=== PATIENT | male | born 1950 | race Caucasian/White ===

== ENCOUNTER 2024-03-11 10:07 | Emergency (ER) | payer OTHER, SELFPAY ==
[2024-03-11] VITALS (31 sets, daily range): BP systolic 86–126; BP diastolic 60–93; BMI 32.0
--- NOTE | 2024-03-11 10:30 | ED.GENMED ---
History of Present Illness
<Kristin Padron PA-C - Last Filed: 03/11/24 17:21>
General
Chief Complaint: Heart Rate Problem
Source: patient
Exam Limitations: none
Time Seen by Provider: 03/11/24 10:25
Nursing documentation reviewed up to this point in time: agreed with
Travel History
Have you had any contact with someone who has COVID-19?: No
Do you have any symptoms of coronavirus? Fever > 100 degrees, chills, cough, shortness of breath, sore throat, loss of taste or smell, muscle aches, or headache?: No
History of Present Illness
History of Present Illness:
This is a 73-year-old male with past medical history paroxysmal a flutter on Eliquis, hypertension presenting the emergency department today with concerns of a high heart rate. Patient states that last night, he was doing a routine check of his
blood pressure and heart rate when he noticed that his heart rate was elevated. He called his cardiology office today who reported that he should go to the emergency department for further evaluation. Patient currently denies any dizziness, chest
pain, shortness of breath, palpitations. Patient states that when this happened in the past, he also had no symptoms at that time. Patient [place] any syncopal episodes. 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 Patient takes
carvedilol for rate control for his a flutter and he takes hydrochlorothiazide for blood pressure control.
Past History
<Kristin Padron PA-C - Last Filed: 03/11/24 17:21>
Past History
ED Past Medical History: HTN and Other (Diverticulosis)
Social History
Personal:
Living: with family
Review of Systems
<Kristin Padron PA-C - Last Filed: 03/11/24 17:21>
Review of Systems
All Other Systems: ROS reviewed and negative except as documented in HPI and ROS
Phy Exam
<Kristin Padron PA-C - Last Filed: 03/11/24 17:21>
Physical Exam
Physical Exam:
General: Patient is well appearing and in no acute distress; non-toxic
Skin: Warm and dry, no rashes or lesions
Head: Normocephalic, atraumatic
Eyes: Sclera non-icteric. EOMs intact.
Cardiac: Tachycardia but regular rhythm.
Peripheral Vascular: No lower extremity swelling or edema, 2+ dorsalis pedis pulses bilaterally
Pulm: Normal respiratory effort, no wheezes, rales, rhonchi
Abdomen: No abdominal tenderness
Neuro: CN II-XII intact, no focal neurologic deficits.
Psychiatric: Appropriate mood and affect.
Course
<Kristin Padron PA-C - Last Filed: 03/11/24 17:21>
Orders/Labs/Results
Orders:
Orders
03/11/24 10:09
EKG [Electrocardiogram (*1)] Urgent
Reason for Study: Tachycardia
EKG- Treatment ONCE
03/11/24 10:30
Cardiac Monitoring- Treatment ONCE
IV Insert/Care/Rem.- Treatment PRN
03/11/24 10:32
Complete Blood Count/With Diff Urgent
Comprehensive Metabolic Panel Urgent
Troponin I Urgent
03/11/24 10:53
Diltiazem 125 mg/125 ml Nss [Cardizem] 125 mg in 125 ml IV NOW
Initial dose in mg/hr, then titrate:: 5
Titrate to keep:: Heart rate 80-100 bpm
Titrate by mg/hr:: 5 mg/hr
Frequency of titrations (minutes):: 15
Maximum dose in mg/hr:: 15
03/11/24 11:41
0.9% Sodium Chloride 1000 ml [Nss] 1,000 ml IV BOLUS
03/11/24 12:23
Diltiazem HCl [Cardizem] 20 mg IV NOW STA
03/11/24 12:42
0.9% Sodium Chloride 1000 ml [Nss] 1,000 ml IV BOLUS
03/11/24 13:40
Propofol [Diprivan] 20 ml .ROUTE .STK-MED
03/11/24 14:07
EKG [Electrocardiogram (*1)] Urgent
Reason for Study: Atrial Flutter
03/11/24 14:08
EKG- Treatment ONCE
Abnormal Lab Results
03/11/24
10:32
Absolute Monos (auto) 0.8 H 10^3/uL
(0.1-0.6)
Monocytes % 10.0 H %
(1.7-9.3)
BUN 24 H mg/dl
(9-20)
Creatinine 1.6 H mg/dL
(0.7-1.3)
Glucose 115 H mg/dl
(70-99)
Troponin I 0.097 H* ng/ml
03/11/24 10:32
03/11/24 10:32
Vital Signs
Initial and Last Documented VS:
Initial Vital Signs
Temp Pulse Resp BP Pulse Ox
97.8 F 145 18 126/93 99
03/11/24 10:09 03/11/24 10:09 03/11/24 10:09 03/11/24 10:09 03/11/24 10:09
Last Documented Vital Signs
Temp Pulse Resp BP Pulse Ox
98.4 F 56 14 107/71 94
03/11/24 14:40 03/11/24 14:46 03/11/24 14:46 03/11/24 14:46 03/11/24 14:46
<Tai Graves DO - Last Filed: 03/11/24 14:10>
Orders/Labs/Results
Orders:
Orders
03/11/24 10:09
EKG [Electrocardiogram (*1)] Urgent
Reason for Study: Tachycardia
EKG- Treatment ONCE
03/11/24 10:30
Cardiac Monitoring- Treatment ONCE
IV Insert/Care/Rem.- Treatment PRN
03/11/24 10:32
Complete Blood Count/With Diff Urgent
Comprehensive Metabolic Panel Urgent
Troponin I Urgent
03/11/24 10:53
Diltiazem 125 mg/125 ml Nss [Cardizem] 125 mg in 125 ml IV NOW
Initial dose in mg/hr, then titrate:: 5
Titrate to keep:: Heart rate 80-100 bpm
Titrate by mg/hr:: 5 mg/hr
Frequency of titrations (minutes):: 15
Maximum dose in mg/hr:: 15
03/11/24 11:41
0.9% Sodium Chloride 1000 ml [Nss] 1,000 ml IV BOLUS
03/11/24 12:23
Diltiazem HCl [Cardizem] 20 mg IV NOW STA
03/11/24 12:42
0.9% Sodium Chloride 1000 ml [Nss] 1,000 ml IV BOLUS
03/11/24 13:40
Propofol [Diprivan] 20 ml .ROUTE .STK-MED
03/11/24 14:07
EKG [Electrocardiogram (*1)] Urgent
Reason for Study: Atrial Flutter
03/11/24 14:08
EKG- Treatment ONCE
Abnormal Lab Results
03/11/24
10:32
Absolute Monos (auto) 0.8 H 10^3/uL
(0.1-0.6)
Monocytes % 10.0 H %
(1.7-9.3)
BUN 24 H mg/dl
(9-20)
Creatinine 1.6 H mg/dL
(0.7-1.3)
Glucose 115 H mg/dl
(70-99)
Troponin I 0.097 H* ng/ml
03/11/24 10:32
03/11/24 10:32
Vital Signs
Initial and Last Documented VS:
Initial Vital Signs
Temp Pulse Resp BP Pulse Ox
97.8 F 145 18 126/93 99
03/11/24 10:09 03/11/24 10:09 03/11/24 10:09 03/11/24 10:09 03/11/24 10:09
Last Documented Vital Signs
Temp Pulse Resp BP Pulse Ox
98.4 F 56 14 107/71 94
03/11/24 14:40 03/11/24 14:46 03/11/24 14:46 03/11/24 14:46 03/11/24 14:46
Procedures
<Tai Graves, DO - Last Filed: 03/11/24 14:10>
Cardioversion
Indication:: Other (Atrial flutter)
Performed by:: Dr. Graves
Synchronized?: Yes
Energy Used: 200 joules
Number of attempts: 1
Successful?: Yes
ASA Risk Score: Class II
Any reaction or bad outcome to prior sedation/anesthesia?: No history of a reaction
Sedation level to be attained: deep
Chart and allergies reviewed: Yes
Patient reassessed prior to sedation: Yes
Time out completed at (validating right patient & procedure): 13:48
History of difficult intubation: No
Airway free of obstruction: Yes
Patient has a gag reflex: Yes
Patient is able to open mouth: Yes
Patient has no dentures: Yes
Patient has no loose teeth: Yes
Medication administered by Provider during Moderate Sedation: IV Propofol (mg) (80)
Total dose administered: 80
Time drug administered: 13:49
Start Time: 13:49
Stop Time: 14:01
<Kristin Padron PA-C - Last Filed: 03/11/24 17:21>
MDM/Problems Addressed
Differential Diagnosis Includes:
A flutter, atrial fibrillation, supraventricular tachycardia, sinus tachycardia, sinus rhythm
MDM/Problems Addressed:
tachycardia
Chronic conditions affecting care:
HTN, paroxysmal aflutter
Acute Exacerbation and/or Progression of Chronic Illness:
HTN, paroxysmal aflutter
<Kristin Padron PA-C - Last Filed: 03/11/24 17:21>
*Pulse Oximetry
Patient hypoxic: no
*Critical Care Note
Total Time (30-74mins, 75-104mins- exclusive of procedures): Not Applicable
<Kristin Padron PA-C - Last Filed: 03/11/24 17:21>
Patient Management
Escalation/DeEscalation of care consider admission/obs:
This is a 73-year-old male with past medical history paroxysmal a flutter on Eliquis, hypertension presenting the emergency department today with concerns of a high heart rate. Patient is no symptoms and he noticed that his heart rate was high when
he was doing a routine blood pressure check. We attempted to bring him patient's rate with diltiazem drip, increasing the drip to 5-10, and 2 additional boluses along with IV fluids. This did not alter her patient's heart rate whatsoever so
cardioversion was indicated. Patient successfully converted with 200 J. Patient now demonstrates sinus bradycardia on his EKG. We reached out to Dr. Mullins, physician from Dr. Deluna's practice, made physician aware of his case, Dr. Mullins
recommends no changes in his medication at this time. Patient made aware of recommendations, patient will follow-up with knife grinder.
<Tai Graves DO - Last Filed: 03/11/24 14:10>
Patient Management
Discussion with other providers: Promotions Executive Producer (Dr. Mullins)
<Kristin Padron PA-C - Last Filed: 03/11/24 17:21>
Update Note
Update Note:
12:00 pm--After multiple revaluations, rate did not decrease with 5mg/hour infusion and so it was increased to 10 mg and IV fluids were started. On reassessment, his heart rate remains in the 140s, will give bolus.
12:51 pm-- most recent blood pressure 86/64, will give another liter of fluid
1:15 pm-- Heart rate remains in 140s, discussed potential of cardioversion with patient
ED Attending Note
<Kristin Padron PA-C - Last Filed: 03/11/24 17:21>
-
Portions of this chart may have been created with voice recognition software.� Occasional wrong word or��sound alike� substitutions may have occurred due to the inherent limitations of voice recognition software.
<Tai Graves DO - Last Filed: 03/11/24 14:10>
ED Attending Note
Patient seen and examined by attending physician: Yes
I performed the substantive portion of visit, reviewed & personally made and approve the management plan that is documented in note by myself or BRUNO.: Yes
ED Attending Note:
73-year-old male with history of atrial fibrillation/atrial flutter who presents with fast heart rate. He states he only knows because he checked his heart rate it was noted to be elevated. He otherwise feels okay. He states he checked his heart
rate yesterday and it was normal. He is on Eliquis and states he takes it 'religiously'. Patient states he has had 2 other episodes over many years with rapid heart rate. The patient denies chest pain. No shortness of breath. Exam: Heart
regular tachycardia extremity edema, no respiratory distress. Assessment and plan: Patient was successfully cardioverted. Continue to monitor. Case discussed with Dr. Mullins who recommends to leave medications as is as outpatient cardiology will
follow
Discharge Plan
Departure
Patient Disposition: Home (Routine Discharge)
Date of Disposition: 03/11/24
Time of Disposition: 14:13
Patient with high blood pressure during this ER visit?: No
Condition: Good
Discharge Problem:
Paroxysmal atrial flutter
Instructions: Atrial Flutter (DC), Procedural Sedation, Adult ED
Prescriptions:
No Action
carvedilol 12.5 mg Tablet
25 mg PO BID
polyethylene glycol 3350 [Miralax] 17 gram Powder In Packet
17 g PO DAILY PRN (Reason: constipation)
ascorbic acid (vitamin C) [Vitamin C] 250 mg Tablet,Chewable
500 mg PO DAILY PRN (Reason: supplement)
hydrochlorothiazide 12.5 mg Capsule
12.5 mg PO DAILY
ezetimibe-simvastatin 10-20 mg Tablet
1 tab PO HS
Fruit and Vegetable Daily 5-6-150 mg Capsule
4 cap PO DAILYPRN PRN (Reason: supplement)
Patient Comments:
03/11/2024, Balance of Nature; 2 fruits and 2 veggies.
Lumigan 0.01 % Drops
1 drp BOTH EYES HS
Eliquis 5 mg Tablet
5 mg PO BID
Referrals:
Pushpa Bro CRNP [Family Provider] -
Activity Restrictions/Additional Instructions:
Please continue with your medications as prescribed.
Please follow up with your knife grinder.
RETURN TO THE EMERGENCY DEPARTMENT SHOULD YOU EXPERIENCE CHEST PAIN, SHORTNESS OF BREATH, SYNCOPAL EPISODES, BACK PAIN, PALPITATIONS, DIZZINESS, OR ANY OTHER SIGNS OR SYMPTOMS CONCERNING TO YOU.
Interventions
Interventions:
*Risk Screen - Suicide Last Done: 03/11/24 10:09
*General Assessment Last Done: 03/11/24 14:48
*Neglect/Abuse Screening Last Done: 03/11/24 14:48
ED- Fall Risk Assessment Last Done: 03/11/24 14:48
*ED COVID-19 Vaccine History Last Done: 03/11/24 10:09
*Nursing Disposition Last Done: 03/11/24 14:51
ED- Cardiac Assessment Last Done: 03/11/24 12:02
ED- Pulmonary Assessment Last Done: 03/11/24 12:02
Discharge Date and Time
Discharge Date/Time: 03/11/24 14:51
Print Language: BULGARIAN
[2024-03-11 10:44] LABS: % Basophils 0.8 % (0-2); % Eosinophils 3.1 % (0-6); % Immature Granulocytes 0.3 % (0-0.5); % Lymphocytes 24.8 % (20.5-51.1); Absolute Basophils 0.1 10^3/uL (0-0.2); Absolute Eosinophils 0.2 10^3/uL (0-0.7); Absolute Lymphocytes 1.9 10^3/uL (1.2-3.4); Absolute Monocytes 0.8 10^3/uL (0.1-0.6); Absolute Neutrophils 4.6 10^3/uL (1.4-6.5); Hematocrit 46.4 % (39.0-52.0); Hemoglobin 16.4 g/dL (13.0-18.0); Mean Corp Hgb Conc. 35.3 g/dL (33.0-37.0); Mean Corpuscular Hgb 29.3 pg (27.0-31.0); Mean Platelet Volume 9.2 fL (7.4-10.4); Nucleated Red Blood Cells % 0 % (-); Platelet Count 217 10^3/uL (130-400); Red Blood Cell Count 5.59 10^6/uL (4.70-6.10); Red Cell Dist. Width 13.7 % (11.5-14.5); White Blood Cell Count 7.5 10^3/uL (4.8-10.8)
[2024-03-11 11:02] LABS: ALT (SGPT) 34 U/L (0-50); AST (SGOT) 26 U/L (17-59); Albumin 4.2 g/dl (3.5-5.0); Alkaline Phosphatase 70 U/L (38-126); Blood Urea Nitrogen 24 mg/dl (9-20); Calcium 9.6 mg/dl (8.4-10.2); Carbon Dioxide 26 mmol/L (22-30); Chloride 106 mmol/L (98-107); Estimated Creatinine Clearance 54 ml/min; Glucose 115 mg/dl (70-99); Potassium 4.5 mmol/L (3.5-5.1); Sodium 138 mmol/L (135-145); Total Bilirubin 1.1 mg/dl (0.2-1.3); Total Protein 7.2 g/dl (6.3-8.2); eGFR 45.78
[2024-03-11] MEDS: CARDIZEM 125 IV (11:04)
[2024-03-11 11:21] LABS: Troponin I 0.097 ng/ml
[2024-03-11] MEDS: NSS 1000 IV ×2 (11:48→12:55)
[2024-03-11] MEDS: CARDIZEM 20 MG IV (12:27)
== END 2024-03-11 14:51 | disposition home or self-care (01) ==
LOC: EMR 10:07
PROVIDERS: EMERGENCY PHYSICIAN Emergency Medicine; FAMILY PHYSICIAN Nurse Practitioner Gerontology
DX: I48.92 Unspecified atrial flutter (principal); R00.2 Palpitations; I10 Essential (primary) hypertension; Z79.01 Long term (current) use of anticoagulants
CPT/HCPCS: 99284; 92960; 96374; 96375; 96361; 80053; 84484; 85025; 93005

== ENCOUNTER → 2024-04-06 13:49 | Outpatient (REF) | payer OTHER, SELFPAY | LOC: RAD 13:49 | PROVIDERS: ATTENDING PHYSICIAN Internal Medicine Cardiovascular Disease; FAMILY PHYSICIAN Nurse Practitioner Gerontology | DX: R09.02 Hypoxemia (principal) | CPT/HCPCS: 71046 ==

== ENCOUNTER → 2024-04-09 09:20 | Outpatient (REF) | payer OTHER, SELFPAY | LOC: RCS 09:20 | PROVIDERS: ATTENDING PHYSICIAN Internal Medicine Cardiovascular Disease | DX: R09.02 Hypoxemia (principal); R42 Dizziness and giddiness | CPT/HCPCS: 93225; 93226 ==

== ENCOUNTER 2024-06-19 21:55 | Emergency (ER) | payer OTHER, SELFPAY ==
[2024-06-19 21:57] VITALS: BP 128/87
[2024-06-19 22:08] VITALS: BP 102/78
[2024-06-19 22:11] VITALS: BMI 32.3
--- NOTE | 2024-06-19 22:14 | EDRN ---
Pt says his was laying on his chest tonight and thought his HR was fast so they did a Kardia mobile and HR was fast, afib. Pt has no symptoms and says his told him he had to come to the ED. Pt took his nighttime dose of eliquis. Pt
worked out this afternoon and says he felt like he usually does but his told him he did not look well afterwards. No headache. Pt says last time he was here for same on March 11, he only knew he had an issue because the HR on his BP monitor at
home was high. Pt started on lisinopril in April.
--- NOTE | 2024-06-19 22:45 | ED.GENMED ---
History of Present Illness
<Buffy Otto MD, Resident - Last Filed: 06/20/24 01:42>
General
Chief Complaint: Heart Rate Problem
Source: patient and spouse
Time Seen by Provider: 06/19/24 22:04
History of Present Illness
History of Present Illness:
73-year-old male, Mr. Rikki Fontenot with past medical history significant for arrhythmia on Eliquis, hypertension, hyperlipidemia presented to the ER reporting heart rate problem. Patient was lying down on bed at home watching TV and his was
lying on his chest and heard his heart rate was abnormal. Patient reports no chest pain, headache, lightheadedness, SOB, fevers/chills, calf pain. Patient is a non-smoker, nonalcoholic, and he also cut down his caffeine intake, currently drinks
only decaffeinated drinks.
Past History
<Buffy Otto MD, Resident - Last Filed: 06/20/24 01:42>
Past History
ED Past Medical History: HTN, Hypercholesterolemia and Other (Diverticulosis)
Social History
Tobacco: Non-smoker
Alcohol: None
Drug: None
Personal:
Living: with family
Phy Exam
<Buffy Otto MD, Resident - Last Filed: 06/20/24 01:42>
Physical Exam
Physical Exam:
GEN: Well appearing, NAD, WDWN
Eyes: PERRLA, EOMs intact, no scleral icterus
HENT: NCAT, oral mucosa moist, no JVD, no cervical adenopathy.
Lungs: CTAB, no wheezes, rales, rhonchi, normal chest wall excursion
Cardiac: Irregular rhythm, tachycardia, S1-S2+, radial pulses 2+ bilat, pedal edema 2+
Abdomen: S, NT, ND, NABS, no masses or hepatosplenomegaly
Neuro: AO x 3, no focal deficits to BUE/BLE
Skin: No rashes, petechiae. Normal color, no pallor or jaundice.
Psych: Calm, cooperative, proper hygiene
Course
<Veneela Bartolome Otto MD, Resident - Last Filed: 06/20/24 01:42>
Orders/Labs/Results
Orders:
Orders
06/19/24 21:57
ECG [Electrocardiogram (*1)] Urgent
Reason for Study: Atrial Fibrillation
06/19/24 21:58
EKG- Treatment ONCE
06/19/24 22:43
0.9% Sodium Chloride 1000 ml [Nss] 1,000 ml IV BOLUS
Diltiazem HCl [Cardizem] 20 mg IV NOW STA
06/19/24 23:03
Complete Blood Count/With Diff Urgent
TSH Reflex To Free T4 Urgent
06/19/24 23:06
EKG [Electrocardiogram (*1)] Urgent
Reason for Study: Other
Other Reason for Exam: converted to NSR
EKG- Treatment ONCE
06/19/24 23:42
Comprehensive Metabolic Panel Urgent
Magnesium Urgent
06/20/24 00:19
Potassium Chloride 10% Elixir [KCl Elixir] 40 meq PO NOW STA
Abnormal Lab Results
06/19/24 06/19/24
23:03 23:42
RBC 4.52 L 10^6/uL
(4.70-6.10)
Hct 36.7 L %
(39.0-52.0)
MCHC 37.1 H g/dL
(33.0-37.0)
Absolute Monos (auto) 0.8 H 10^3/uL
(0.1-0.6)
Monocytes % 10.4 H %
(1.7-9.3)
BUN 27 H mg/dl
(9-20)
Creatinine 1.5 H mg/dL
(0.7-1.3)
Glucose 101 H mg/dl
(70-99)
Total Protein 5.7 L g/dl
(6.3-8.2)
Albumin 3.3 L g/dl
(3.5-5.0)
06/19/24 23:03
06/19/24 23:42
Vital Signs
Initial and Last Documented VS:
Initial Vital Signs
Temp Pulse Resp BP Pulse Ox
98.1 F 142 18 128/87 97
06/19/24 21:57 06/19/24 21:57 06/19/24 21:57 06/19/24 21:57 06/19/24 21:57
Last Documented Vital Signs
Temp Pulse Resp BP Pulse Ox
98.1 F 81 14 111/74 95
06/19/24 21:57 06/20/24 00:00 06/19/24 23:07 06/20/24 00:00 06/20/24 00:00
<Tai Graves DO - Last Filed: 06/19/24 23:46>
Orders/Labs/Results
Orders:
Orders
06/19/24 21:57
ECG [Electrocardiogram (*1)] Urgent
Reason for Study: Atrial Fibrillation
06/19/24 21:58
EKG- Treatment ONCE
06/19/24 22:43
0.9% Sodium Chloride 1000 ml [Nss] 1,000 ml IV BOLUS
Diltiazem HCl [Cardizem] 20 mg IV NOW STA
06/19/24 23:03
Complete Blood Count/With Diff Urgent
TSH Reflex To Free T4 Urgent
06/19/24 23:06
EKG [Electrocardiogram (*1)] Urgent
Reason for Study: Other
Other Reason for Exam: converted to NSR
EKG- Treatment ONCE
06/19/24 23:42
Comprehensive Metabolic Panel Urgent
Magnesium Urgent
06/20/24 00:19
Potassium Chloride 10% Elixir [KCl Elixir] 40 meq PO NOW STA
Abnormal Lab Results
06/19/24 06/19/24
23:03 23:42
RBC 4.52 L 10^6/uL
(4.70-6.10)
Hct 36.7 L %
(39.0-52.0)
MCHC 37.1 H g/dL
(33.0-37.0)
Absolute Monos (auto) 0.8 H 10^3/uL
(0.1-0.6)
Monocytes % 10.4 H %
(1.7-9.3)
BUN 27 H mg/dl
(9-20)
Creatinine 1.5 H mg/dL
(0.7-1.3)
Glucose 101 H mg/dl
(70-99)
Total Protein 5.7 L g/dl
(6.3-8.2)
Albumin 3.3 L g/dl
(3.5-5.0)
06/19/24 23:03
06/19/24 23:42
Vital Signs
Initial and Last Documented VS:
Initial Vital Signs
Temp Pulse Resp BP Pulse Ox
98.1 F 142 18 128/87 97
06/19/24 21:57 06/19/24 21:57 06/19/24 21:57 06/19/24 21:57 06/19/24 21:57
Last Documented Vital Signs
Temp Pulse Resp BP Pulse Ox
98.1 F 81 14 111/74 95
06/19/24 21:57 06/20/24 00:00 06/19/24 23:07 06/20/24 00:00 06/20/24 00:00
<Buffy Otto MD, Resident - Last Filed: 06/20/24 01:42>
MDM/Problems Addressed
Differential Diagnosis Includes:
Atrial fibrillation versus atrial flutter versus atrial tachycardia versus PSVT
MDM/Problems Addressed:
Patient is asymptomatic at presentation.
Blood pressure is stable at 128/87. Heart rate at 142.
EKG�A-fib with rapid ventricular response, ventricular rate of 144.
CBC unremarkable, CMP-BUN 27, creatinine 1.5, TSH, magnesium-WNL.
Potassium�3.5, repleted with 40 mg.
Patient is started on IV fluids
Patient is on Eliquis, did not miss any doses.
Ordered diltiazem 20 mg bolus, but patient has spontaneously converted back to sinus rhythm without any medications.
Patient remained stable with heart rate in 80s. Blood pressure 111/74.
Patient is asymptomatic.
Clinically stable to be discharged home.
<Tai Graves DO - Last Filed: 06/19/24 23:46>
*Pulse Oximetry
Patient hypoxic: no
*EKG
Interpreted by ED Provider?: Yes
Interpretation: abnormal
Rate: tachycardiac
Rhythm: a-fib
Ischemia: non-specific ST changes
*Vascular Technologist Interpretation
Rate: tachycardiac
Interpretation: abnormal
Rhythm: a-fib
*Critical Care Note
Total Time (30-74mins, 75-104mins- exclusive of procedures): 30 minutes
Data Reviewed
Review of Other/Old Records Reveals: Other (prior ekg reviewed)
Source: patient and spouse
Prescriptions/Medications Considered But Not Given:
Consider diltiazem the patient converted on his own after IV stick
ED Attending Note
<Buffy Otto MD, Resident - Last Filed: 06/20/24 01:42>
-
Portions of this chart may have been created with voice recognition software.� Occasional wrong word or��sound alike� substitutions may have occurred due to the inherent limitations of voice recognition software.
<Tai Graves, DO - Last Filed: 06/19/24 23:46>
ED Attending Note
Patient seen and examined by attending physician: Yes
I performed a history and physical exam of patient and discussed management with resident, I reviewed resident's note and agree with documented findings and plan of care.: Yes
ED Attending Note:
73-year-old male who presents with rapid A-fib. I did take care of him in the past with similar complaints and he had been doing well since March. Today he only noticed he was in A-fib because his laid her head on his chest. Patient offers no
symptoms. Exam: Awake and alert, heart irregularly irregular and tachycardic. No respiratory distress. Trace bilateral lower extremity edema. Assessment plan: Patient converted back to sinus rhythm on his own after IV stick. Await electrolytes
and anticipate discharge. Check potassium in light of hydrochlorothiazide
Discharge Plan
Departure
Patient Disposition: Home (Routine Discharge)
Date of Disposition: 06/20/24
Time of Disposition: 00:16
Patient with high blood pressure during this ER visit?: No
Condition: Good
Discharge Problem:
Atrial fibrillation
Instructions: Atrial Fibrillation (DC)
Prescriptions:
No Action
polyethylene glycol 3350 [Miralax] 17 gram Powder In Packet
17 g PO DAILY PRN (Reason: constipation)
ascorbic acid (vitamin C) [Vitamin C] 250 mg Tablet,Chewable
500 mg PO DAILY PRN (Reason: supplement)
hydrochlorothiazide 12.5 mg Capsule
12.5 mg PO DAILY
ezetimibe-simvastatin 10-20 mg Tablet
1 tab PO HS
Lumigan 0.01 % Drops
1 drp BOTH EYES HS
Eliquis 5 mg Tablet
5 mg PO BID
carvedilol 25 mg Tablet
25 mg PO BID
lisinopril 5 mg Tablet
5 mg PO DAILY
Referrals:
Pushpa Bro CRNP [Family Provider] -
Activity Restrictions/Additional Instructions:
Please follow-up with your primary care provider and field identification specialist within a week.
Interventions
Interventions:
*Risk Screen - Suicide Last Done: 06/19/24 21:57
*General Assessment Last Done: 06/19/24 21:57
*Neglect/Abuse Screening Last Done: 06/19/24 21:57
ED- Fall Risk Assessment Last Done: 06/19/24 23:14
*ED COVID-19 Vaccine History Last Done: 06/19/24 22:12
*Nursing Disposition Last Done: 06/20/24 00:42
ED- Cardiac Assessment Last Done: 06/19/24 22:11
ED- Pulmonary Assessment Last Done: 06/19/24 22:11
Discharge Date and Time
Discharge Date/Time: 06/20/24 00:42
Print Language: [place] ISLAND[place]
[2024-06-19 23:00] VITALS: BP 121/84
[2024-06-19] MEDS: NSS 1000 IV (23:03)
[2024-06-19 23:07] VITALS: BP 119/83
[2024-06-19 23:11] LABS: % Basophils 0.6 % (0-2); % Immature Granulocytes 0.4 % (0-0.5); % Lymphocytes 24.8 % (20.5-51.1); % Monocytes 10.4 % (1.7-9.3); % Neutrophils 61.8 % (42.2-75.2); Absolute Basophils 0.1 10^3/uL (0-0.2); Absolute Eosinophils 0.2 10^3/uL (0-0.7); Absolute Monocytes 0.8 10^3/uL (0.1-0.6); Absolute Neutrophils 4.9 10^3/uL (1.4-6.5); Hematocrit 36.7 % (39.0-52.0); Hemoglobin 13.6 g/dL (13.0-18.0); Mean Corp Hgb Conc. 37.1 g/dL (33.0-37.0); Mean Corpuscular Hgb 30.1 pg (27.0-31.0); Mean Corpuscular Volume 81.2 fL (80.0-94.0); Mean Platelet Volume 9.5 fL (7.4-10.4); Nucleated Red Blood Cells % 0 % (-); Platelet Count 188 10^3/uL (130-400); Red Blood Cell Count 4.52 10^6/uL (4.70-6.10); White Blood Cell Count 7.9 10^3/uL (4.8-10.8)
--- NOTE | 2024-06-19 23:13 | EDRN ---
Darwin OSBORNE, talking with pt and his and noted pt in NSR. HR 80's. Resident informed and went to bedside to speak with pt. Dr Graves informed and at bedside.
[2024-06-19 23:57] LABS: TSH Reflex To Free T4 1.39 uIU/ml (0.47-4.68)
[2024-06-20] VITALS: BP 111/74
[2024-06-20 00:12] LABS: ALT (SGPT) 24 U/L (0-50); AST (SGOT) 23 U/L (17-59); Albumin 3.3 g/dl (3.5-5.0); Alkaline Phosphatase 57 U/L (38-126); Blood Urea Nitrogen 27 mg/dl (9-20); Calcium 8.7 mg/dl (8.4-10.2); Carbon Dioxide 22 mmol/L (22-30); Chloride 107 mmol/L (98-107); Estimated Creatinine Clearance 57 ml/min; Glucose 101 mg/dl (70-99); Magnesium 1.9 mg/dl (1.6-2.3); Potassium 3.5 mmol/L (3.5-5.1); Sodium 137 mmol/L (135-145); Total Bilirubin 0.5 mg/dl (0.2-1.3); Total Protein 5.7 g/dl (6.3-8.2); eGFR 49.47
[2024-06-20] MEDS: KCL ELIXIR 40 MEQ PO (00:35)
== END 2024-06-20 00:42 | disposition home or self-care (01) ==
LOC: EMR 21:55
PROVIDERS: Student in an Organized Health Care Education/Training Program; EMERGENCY PHYSICIAN Emergency Medicine; FAMILY PHYSICIAN Nurse Practitioner Gerontology
DX: I48.91 Unspecified atrial fibrillation (principal); I10 Essential (primary) hypertension; E78.00 Pure hypercholesterolemia, unspecified; K57.90 Diverticulosis of intestine, part unspecified, without perforation or abscess without bleeding; Z79.01 Long term (current) use of anticoagulants
CPT/HCPCS: 99291; 96360; 80053; 83735; 84443; 85025; 93005

== ENCOUNTER 2024-08-31 06:08 | Day surgery (SDC) | payer OTHER, SELFPAY ==
[2024-08-10 13:10] VITALS: BMI 32.7
[2024-08-10 13:33] LABS: % Basophils 0.6 % (0-2); % Eosinophils 3.7 % (0-6); % Immature Granulocytes 0.2 % (0-0.5); % Lymphocytes 22.6 % (20.5-51.1); % Monocytes 7.3 % (1.7-9.3); % Neutrophils 65.6 % (42.2-75.2); Absolute Eosinophils 0.2 10^3/uL (0-0.7); Absolute Lymphocytes 1.2 10^3/uL (1.2-3.4); Absolute Monocytes 0.4 10^3/uL (0.1-0.6); Absolute Neutrophils 3.3 10^3/uL (1.4-6.5); Hematocrit 41.8 % (39.0-52.0); Hemoglobin 14.7 g/dL (13.0-18.0); Mean Corp Hgb Conc. 35.2 g/dL (33.0-37.0); Mean Corpuscular Hgb 30.4 pg (27.0-31.0); Mean Corpuscular Volume 86.5 fL (80.0-94.0); Mean Platelet Volume 9.2 fL (7.4-10.4); Nucleated Red Blood Cells % 0 % (-); Platelet Count 179 10^3/uL (130-400); Red Blood Cell Count 4.83 10^6/uL (4.70-6.10); Red Cell Dist. Width 13.2 % (11.5-14.5); White Blood Cell Count 5.1 10^3/uL (4.8-10.8)
--- NOTE | 2024-08-10 14:00 | SLEEP.APNEA ---
Sleep Apnea Order
-
Patient screened as High Risk for Sleep Apnea on Stop Bang Questionnaire. Patient referred to [facility] for Pre-Study.

Name: SHONA MG
: 1950
Home Phone: Use [email or web address] instead
Cell Phone: [f_Reg Other Phone]
Work Phone: #
Address: [address] [place] [address]
City: [place]
State: [place]
Zip: [f_[facility] Zip]
Family Physician: CLAUDIA Olsen
Height 5 ft 11 in
Actual Weight 106.3 kg
Body Mass Index (BMI) 32.7
Ordering Provider: Destiny Ruth
[2024-08-10 14:06] LABS: ALT (SGPT) 32 U/L (0-50); AST (SGOT) 25 U/L (17-59); Albumin 4.2 g/dl (3.5-5.0); Alkaline Phosphatase 56 U/L (38-126); Blood Urea Nitrogen 23 mg/dl (9-20); Calcium 9.2 mg/dl (8.4-10.2); Carbon Dioxide 23 mmol/L (22-30); Chloride 107 mmol/L (98-107); Estimated Creatinine Clearance 65 ml/min; Glucose 82 mg/dl (70-99); Potassium 4.5 mmol/L (3.5-5.1); Sodium 141 mmol/L (135-145); Total Bilirubin 0.7 mg/dl (0.2-1.3); Total Protein 6.9 g/dl (6.3-8.2); eGFR 58.73
[2024-08-31] VITALS (10 sets, daily range): BP systolic 104–143; BP diastolic 66–90
[2024-08-31] MEDS: NSS 500 IV (07:15)
[2024-08-31 09:04] LABS: ACT-LR - POC 335 Seconds (116-155)
[2024-08-31 09:26] LABS: ACT-LR - POC 319 Seconds (116-155)
[2024-08-31 10:21] LABS: ACT-LR - POC 332 Seconds (116-155)
--- NOTE | 2024-08-31 11:04 | ITS.CL.ABL ---
Education Rn - Ablation
Ablation
Procedure Report:
AFIB ablation:
Ms. Fontenot is a very pleasant 73 yr old gentleman with symptomatic paroxysmal AF and atrial flutter and had recurrent atrial fibrillation and anticoagulated with Eliquis is recommended AF / Flutter ablation.
Date of the Procedure:
08/31/2024
Indications:
Paroxysmal atrial fibrillation / Atrial Flutter
Pre-Operative Diagnosis:
Paroxysmal atrial fibrillation / Atrial Flutter
Post-Operative Diagnosis:
Paroxysmal atrial fibrillation / Atrial Flutter
Procedure Performed:
Atrial fibrillation ablation with Pulsed-Field approach for pulmonary vein isolation
Typical atrial flutter with cavo tricuspid isthmus ablation with radiofrequency
Mitral flutter ablation with lateral mitral isthmus ablation.
Performing Physician:
Jerod King MD
Assistants:
EP staff
Anesthesia:
See anesthesia records
Detailed Description of the Procedure:
Written informed consent was obtained from the patient after a full explanation of the risks and benefits of the procedure including the risks of sedation and anesthesia.
The patient was brought to the electrophysiology laboratory in stable condition in fasting state. Continuous electrocardiographic and hemodynamic monitoring was initiated.
The initial rhythm was normal sinus rhythm.
The procedure site was meticulously prepared with surgical scrub and allowed to dry with no pooling. Sterile draping was applied to cover the procedure site. The image intensifier was draped with sterile bag and positioned over the patient. After
infusion of local anesthetic, vascular access was obtained under ultrasound guidance and sheaths were placed over guide wire as detailed below.
Sheath and Catheter Placement:
The following catheters / sheaths were placed
Sheaths:
��������� 17Fr steerable sheath ([place] Garmentadrive�, [employer]) in right femoral upgraded from SL1 sheath
��������� 9Fr in right femoral vein
Catheters:
��������� Carto Pentaray mapping catheter � at locations of RA, LA
��������� Thermocool ST SF radiofrequency ablation catheter at RA
��������� Farawave� PFA catheter
��������� ICE catheter -AcuNav - at locations of RA, SVC, and RV.
��������� Decapolar Bard catheter in RA and CS
Heparin was initiated and infused to maintain appropriate ACT.
Intracardiac ECHO:
An 8-Z[place]ian AcuNav intracardiac ECHO (ICE) probe was advanced through the 9-[place] sheath in the right femoral vein into the right atrium under fluoroscopic and ICE ultrasound image guidance and a baseline ECHO study was performed. The left atrial
size was dilated. There was mild tricuspid regurgitation. The aortic valve was grossly normal. There was normal left ventricular systolic functions. There is trace pericardial effusion. All the four veins were identified and has flow identified.
Tricuspid isthmus was imaged. There was a small Eustachian ridge noted.
During the procedure, ICE was used for monitoring of complications, guidance of trans-septal puncture, monitor the catheter position and tracking ablation lesions. No change in the pericardial space noted throughout the procedure.
Electroanatomic mapping of the right atrium:
A pig tail guidewire was advanced through the 8-[place] sheath in the right femoral vein into the superior vena cava under fluoroscopic and ICE guidance. The 8-[place] sheath was exchanged for an Faradrive sheath which was advanced into the superior
vena cava.
Using the Pentaray catheter advanced through Faradrive sheath into the right atrium, an electroanatomic map (EAM) of the right atrium was created using [employer]Vel[employer] Carto mapping system with Pentaray.
Ablation # 1: Typical Atrial Flutter Ablation:
Patient has a clear history of atrial flutter and as per pre-operative plan, radiofrequency ablation was performed using a 3.5mm, open irrigation, force-sensing bidirectional ablation catheter (Thermocool STSF) in the cavotricuspid isthmus from the
tricuspid annulus to the IVC ridge. All the ablation lesions were guided by the [facility] SURPOINT module with the CTI lesions were limited to 45 rodriguez for SURPOINT lesion index goal of 450.
��������������� -Bidirectional block was confirmed across the CTI line with differential pacing.
��������������� -Double potentials were spaced greater than 98 msec apart.
��������������� -The conduction time across the CTI line from proximal CS pacing was 161 msec.
��������������� -EAM of the right atrium was obtained with coronary sinus pacing and showed a line of block at the CTI.
��������������� -The time interval just lateral to the ablation lesions was 161 msec and the lateral wall was 112 msec
��������������� - All these maneuvers confirmed the block at the CTI line.
- Post ablation HV interval was unchanged at 45msec
Then attention was given to atrial fibrillation ablation.
Trans-septal Puncture:
A pigtail guidewire was advanced into the superior vena cava under fluoroscopic and ICE guidance. The dilator and the versacross wire was place in the Faradrive sheath. The apparatus was withdrawn until it was in contact with the fossa ovalis. The
position was adjusted based on fluoroscopy and ultrasound images from ICE. Under fluoroscopic, hemodynamic and ICE ultrasound guidance, left atrium was cannulated by applying RF energy. Once atrial septum was cannulated, the versaccross wire was
advanced into the left atrium. The guide wire was advanced into the left superior pulmonary vein. Both the sheath and the dilator was advanced into the left atrium. The dilator was withdrawn. Blood was aspirated from the sheath and arterial blood
confirmed. The sheath was flushed. Saline injection noted into the left atrium on ICE. The mapping catheter was advanced in the sheath into the left pulmonary vein.
Left atrial pressure was measured.
3D Electroanatomic Mapping:
Using the Penta-ray catheter advanced through sheath into the left atrium, an electroanatomic map (EAM) of the left atrium was created using Carto mapping system. The map was used for localization of catheter position and tacking of ablation
lesions.
The EAM of the left atrium showed 4 pulmonary veins with all 4 veins electrically connected to the body the LA. It showed no sign of significant scar in the LA. The LA was dilated in size.
Following the EAM, preparation were made for ablation.
Ablation:
Ablation # 2: Pulmonary vein Isolation:
Glycopyrrolate 0.2 mg was given prior to the placement of ablation. Using Farave pulsed wave ablation system, pulmonary vein isolation was achieved. First the ablation catheter was placed in the LSPV and ostial ablation lesions were performed in a
counter clock little approach all around the PV ostium circumferentially in the olive form of the farawave catheter. Then the catheter was placed on the antral location in flower form and ablation lesions were placed circumferentially on the antrum of
the vein.
In the similar fashion, the LIPV were isolated.
Then the catheter was moved to right sided veins. The ostial and antral ablations were placed as noted above to the RSPV and RIPV.
Electroanatomic mapping of atrial flutter in RA and LA
Once pulmonary vein isolation was achieved, decision was made to map right side given concentric nature of tachycardia.
The tachycardia changed the activation and cycle length t 220 msec and was eccentric on the CS. The tachycardia was mapped in the right atrium first that shows the earliest concentric part at the atrial septum consistent with left atrial origin. The
CS showed concentric activation.
Left atrium was mapped in detail in the tachycardia showing anticlockwise mitral valve flutter involving the mitral isthmus.�
Ablation #3 atypical atrial flutter involving the mitral isthmus ablation:
Using the pulsed field ablation catheter, a series of ablations were placed on the mitral isthmus. With the ablation of mitral isthmus, patient's tachycardia terminated into normal sinus rhythm.
Additional ablations were placed to confirm block at the mitral isthmus.
Post ablation Electroanatomic mapping:
Once ablation was completed, the EAM of the LA was done again in sinus rhythm with excellent demarcation of LA myocardium and isolated antral tissue.
The JACQUELYN had healthy signals and was not isolated.
The distal CS was paced and left atrium was mapped showing block at the mitral isthmus with trans-mitral isthmus conduction time of 188 ms.
CTI reconnection ablation.
Right atrium was again mapped and breakthrough conduction from the CTI line was noted. Additional ablation lesions were placed at the cavotricuspid isthmus. Proximal CS was paced and block at the CTI was confirmed.
EPS and Confirmation of the PVI and bidirectional block:
Following achievement of entrance block at the pulmonary veins, pacing from the mapping catheter in each of the four veins at 10 milliamps for 2 milliseconds showed entrance and exit block. All PVI were rechecked at the end of the case and remained
isolated with dissociated and local capture with pacing. Entrance and exit block were demonstrated in all veins.
Procedure End
ICE study was done again that showed no epicardial accumulation. No complications noted.
Following the completion of the EP study, catheters were removed. Protamine 40 mg was given at the end of the procedure and ACT was checked repeatedly. The sheaths were removed and hemostasis achieved with Vascade and manual compression after
acceptable ACT is achieved.
Left atrial Pressure:
Pre-Procedure: Mean LA pressure was 7mmHg
Post-Procedure: Mean LA pressure was 7mmHg
Post-Procedure: Mean RA pressure was 4mmHg
Fluoro time:
6.4 min / DAP 3.4
Estimated Blood loss:
<10 cc
Specimens Removed:
None.
Implants / Devices:
None
Urine output:
None
Packs / Drains/ Tubes:
None
Instrument / Sponge Count Correct:
Yes
Complications of the Procedure:
None
Condition of Patient at Time of Transfer:
Hemodynamically stable with no neurological or vascular compromise.
Summary:
Successful atrial fibrillation ablation with Pulsed Field approach for pulmonary vein isolation, typical cavotricuspid isthmus dependent flutter ablation using radiofrequency, mitral flutter ablation using pulsed field
Figures from the Procedure:
Figure 1: The electroanatomic mapping (EAM) of the left atrium with bipolar voltage (purple indicates normal electrical activity with red as no myocardial muscle electric activity indicating a line of block or scar.
--- NOTE | 2024-08-31 14:18 | W.PN.UPDATE ---
Update Note
Progress Note Update
Pt seen post PFA and Futter ablation. Right groin with vascade closure, no ht/bleeding, oob ambulating, urinating without difficulty. Post EKG NSR w/incRBBB as before, no acute changes. Resume eliquis tonight. Some extra aflutter/AT during case
today and given amiodarone at the time. Will go home on amiodarone 200mg BID for a few months and will revisit at followup appointment. Folowup at [facility] as scheduled. Home today if groin site/tele remain stable.
== END 2024-08-31 14:35 | disposition home or self-care (01) ==
LOC: CATH 06:08
PROVIDERS: ATTENDING PHYSICIAN Internal Medicine Cardiovascular Disease; FAMILY PHYSICIAN Nurse Practitioner Gerontology; OTHER PHYSICIAN Internal Medicine Cardiovascular Disease
DX: I48.0 Paroxysmal atrial fibrillation (principal); I48.4 Atypical atrial flutter; I12.9 Hypertensive chronic kidney disease with stage 1 through stage 4 chronic kidney disease, or unspecified chronic kidney disease; R53.83 Other fatigue; R00.2 Palpitations; R60.0 Localized edema; Z79.01 Long term (current) use of anticoagulants; Z79.899 Other long term (current) drug therapy; I34.1 Nonrheumatic mitral (valve) prolapse; E78.5 Hyperlipidemia, unspecified; I07.1 Rheumatic tricuspid insufficiency; N18.30 Chronic kidney disease, stage 3 unspecified
CPT/HCPCS: C1732; C1892; C1759; C1730; 36415; 80053; 85025; 85347; 86850; 86900; 86901; 93005; 93655; 93656; C1733; C1760; C1766